=== PATIENT | female | born 1990 | race Caucasian/White ===

== ENCOUNTER → 2016-09-22 | Outpatient (CLI) | payer OTHER ==
[~2016-09-22] MED LIST: PRENTAB26 PO
[2016-09-24 20:52] LABS: QUANTIF TB AG-NIL <0.00 IU/ML; QUANTIFERON NIL 0.06 IU/ML
== END | disposition home or self-care (01) ==
LOC: C.LABSPEC 12:26
PROVIDERS: ATTEND Family Medicine
DX: Z11.3 Encounter for screening for infections with a predominantly sexual mode of transmission (principal); Z11.1 Encounter for screening for respiratory tuberculosis

== ENCOUNTER → 2016-09-29 | Outpatient (CLI) | payer OTHER ==
[2016-10-02 02:41] LABS: CHLAMYDIA TRACH RNA*** NOT DETECTED (NOT DETECTED); GC (NEIS GONORRHOEAE)RNA** NOT DETECTED (NOT DETECTED)
== END | disposition home or self-care (01) ==
LOC: C.LAB 12:22 → MERGE 12:22
PROVIDERS: ATTEND Obstetrics & Gynecology
DX: O20.0 Threatened abortion (principal)

== ENCOUNTER → 2016-10-01 | Outpatient (CLI) | payer OTHER ==
--- NOTE | 2016-10-22 07:46 | CODING QUERY NO DIAGNOSIS ---
TREATMENT RENDERED WITHOUT A DIAGNOSIS To promote full compliance with coding requirements relating to patient care, physician participation is requested in all cases of manager interventional uncertainty. Please assist us with providing a diagnosis/symptom for the test(s) below: A diagnosis/symptom was not documented on your Order. A valid diagnosis/symptom is required to bill all insurances. Please remember that we are unable to code a diagnosis of rule out, probable, possible, questionable, or suspected. Tests that require a diagnosis: DOS: 10/01/16 * BETA-HCG, QUANTITATIVE DIAGNOSIS: Provider Signature: Date: Thank you Opal Castrejon [employer] Once completed, please kindly fax back to [phone] For questions please call [phone]
== END | disposition home or self-care (01) ==
LOC: C.LAB 15:12 → MERGE 15:12
PROVIDERS: ATTEND Obstetrics & Gynecology
DX: O00.90 Unspecified ectopic pregnancy without intrauterine pregnancy (principal)

== ENCOUNTER → 2016-10-03 | Outpatient (CLI) | payer OTHER ==
--- NOTE | 2016-10-03 11:07 | DIAGNOSTIC IMAGING REPORT ---
ULTRASOUND OF THE PELVIS CLINICAL HISTORY: . Left pelvic pain. COMPARISON STUDY: No priors. TECHNIQUE: Real-time, grayscale, and color flow sonography of the pelvis is performed both transabdominally and endovaginally. Images are reviewed in the transverse and longitudinal planes. FINDINGS: Uterus: The uterus is normal in size and echotexture, measuring 9.0 x 3.6 x 5.2 cm. Endometrium: No intrauterine gestation is identified. The endometrium is mildly thickened measuring up to 1.5 cm. Ovaries: The ovaries are normal in size and morphology. The right ovary measures 4.0 x 2.4 x 2.4 cm and the left ovary measures 3.8 x 1.7 x 2.3 cm. Normal Doppler waveforms are shown within both ovaries. Pelvis: There is trace free fluid in the cul-de-sac. There is a right adnexal lesion identified adjacent to the right ovary. The appearance is typical in appearance for a gestational sac and the appearance is consistent with an ectopic . A yolk sac is identified. No pole was seen. IMPRESSION: 1. No intrauterine gestation is identified and there is a right adnexal lesion adjacent to the right ovary consistent with an ectopic . Dr. Guallpa was reportedly present during the examination. 2. There is trace free fluid in the cul-de-sac. Electronically signed by: Clayton Montero M.D. 10/03/2016 11:05 AM Dictated Date/Time: 10/03/2016 11:01 AM
--- NOTE | 2016-10-03 11:22 | HISTORY & PHYSICAL EXAMINATION ---
DATE OF ADMISSION: 10/03/2016 CHIEF COMPLAINT: Right adnexal pain. Positive test. HISTORY OF PRESENT ILLNESS: The patient is a 26-year-old 1, para 0. General health is good. Last menstrual period for this is 08/16/2016. About 3 weeks ago she had some light spotting. She had some serial beta units and a progesterone level. The beta units vimal but not at an appropriate rate. She also began experience right adnexal pain. She was seen in the ultrasound suite on 10/03/2016. Transvaginal ultrasound revealed a right adnexal gestational sac 0.8 cm and it appeared to have a yolk sac in the center of it. Presently being admitted to outpatient treatment unit for methotrexate treatment for ectopic . PAST MEDICAL HISTORY: ALLERGIES: No known drug allergies. PAST SURGICAL HISTORY: No previous surgery. She is in good general health. SOCIAL HISTORY: No smoking, no excessive alcohol intake, is presently unemployed. FAMILY HISTORY: Mom is 53 in good health. Father 54 in good health. Stepbrother in good health. REVIEW OF SYSTEMS: No symptoms of frequent or severe headaches, ear infections, nosebleed, sore throats. PHYSICAL EXAMINATION: GENERAL: Well-developed, well-nourished 26-year-old [place] female, alert, oriented x3 and cooperative, in mild distress. EYES: Conjunctivae are pink, sclerae white, no evidence of jaundice. EARS: Normal light reflex bilaterally. NOSE: Had normal mucosa. Septum is midline. There were no polyps. THROAT: No erythema or evidence of infection. Teeth are in good state of repair. HEAD: Normocephalic, normal distribution of hair. NECK: Supple. Trachea midline. Thyroid is not enlarged. There is no adenopathy appreciated. Both carotids are of good intensity. CHEST: Clear to auscultation and percussion. No wheezes, rales or rhonchi appreciated. HEART: Had regular rhythm. S1, S2 normal. ABDOMEN: Soft and nontender. PELVIC EXAMINATION: Revealed normal-appearing cervix. Small amount of bleeding from the external cervical os. There was some mild right adnexal tenderness. MUSCULOSKELETAL EXAMINATION: Revealed no calf tenderness. IMPRESSIONS OF THIS CASE: Right-sided ectopic .
== END | disposition home or self-care (01) ==
LOC: MERGE 10:02 → C.ULTR 10:02
PROVIDERS: ATTEND Obstetrics & Gynecology
DX: O99.89 Other specified diseases and conditions complicating pregnancy, childbirth and the puerperium (principal); R10.2 Pelvic and perineal pain; Z3A.00 Weeks of gestation of pregnancy not specified

== ENCOUNTER → 2016-10-03 | Day surgery (SDC) | payer OTHER ==
[~2016-10-03] VITALS: Ht 175.3 cm; Wt 59.0 kg
[~2016-10-03] MED LIST changes: +METHOTREXATE SOD IM ONE
[2016-10-03 11:15] VITALS: BP 106/53; PULSE 60; TEMP 36.8; O2SAT 100; Ht 175.3 cm; Wt 59.0 kg
[2016-10-03 11:46] LABS: BASO % 0.7 %; BASO ABS # 0.06 K/uL (0-0.2); EOS % 1.5 %; HEMATOCRIT 37.6 % (37-47); IG% 0.1 %; LYMPH % 23.3 %; LYMPH ABS # 1.98 K/uL (1.2-3.4); MEAN CELL VOLUME 84.3 fL (80-100); MEAN CORPUSCULAR HEMOGLOBIN 28.7 pg (25-34); MEAN PLATELET VOLUME 9.6 fL (7.4-10.4); MONO % 5.9 %; NEUT % 68.5 %; PLATELET COUNT 186 K/uL (130-400); RED BLOOD COUNT 4.46 M/uL (4.2-5.4); WHITE BLOOD COUNT 8.51 K/uL (4.8-10.8)
[2016-10-03 11:47] LABS: COMPLETE YES
[2016-10-03 12:21] LABS: PREG INTERNAL NEGATIVE QC NEG CLEAR BACKGROUND; PREG INTERNAL POSITIVE QC POS CONTROL LINE
== END | disposition home or self-care (01) ==
LOC: MERGE 11:06 → C.MTU 11:06
PROVIDERS: ATTEND Obstetrics & Gynecology
DX: O00.90 Unspecified ectopic pregnancy without intrauterine pregnancy (principal)

== ENCOUNTER → 2016-10-07 | Outpatient (CLI) | payer OTHER ==
[~2016-10-07] MED LIST changes: -METHOTREXATE SOD IM ONE
== END | disposition home or self-care (01) ==
LOC: C.LAB 18:10 → MERGE 18:10
PROVIDERS: ATTEND Obstetrics & Gynecology
DX: O00.90 Unspecified ectopic pregnancy without intrauterine pregnancy (principal)

== ENCOUNTER → 2016-10-09 | Outpatient (CLI) | payer OTHER | END | disposition home or self-care (01) | LOC: C.LAB 07:53 → MERGE 07:53 | PROVIDERS: ATTEND Obstetrics & Gynecology | DX: O00.90 Unspecified ectopic pregnancy without intrauterine pregnancy (principal) ==

== ENCOUNTER → 2016-10-15 | Outpatient (CLI) | payer OTHER | END | disposition home or self-care (01) | LOC: C.LAB 18:06 | PROVIDERS: ATTEND Obstetrics & Gynecology | DX: O00.90 Unspecified ectopic pregnancy without intrauterine pregnancy (principal) ==

== ENCOUNTER → 2016-10-21 | Outpatient (CLI) | payer OTHER | END | disposition home or self-care (01) | LOC: C.LAB 18:04 | PROVIDERS: ATTEND Obstetrics & Gynecology | DX: O00.90 Unspecified ectopic pregnancy without intrauterine pregnancy (principal) ==

== ENCOUNTER → 2016-10-31 | Outpatient (CLI) | payer OTHER | END | disposition home or self-care (01) | LOC: C.LAB 10:58 | PROVIDERS: ATTEND Obstetrics & Gynecology | DX: O00.90 Unspecified ectopic pregnancy without intrauterine pregnancy (principal); Z3A.00 Weeks of gestation of pregnancy not specified ==

== ENCOUNTER → 2016-11-21 | Outpatient (CLI) | payer OTHER | END | disposition home or self-care (01) | LOC: C.LAB 14:33 | PROVIDERS: ATTEND Obstetrics & Gynecology | DX: O00.90 Unspecified ectopic pregnancy without intrauterine pregnancy (principal) ==

== ENCOUNTER → 2017-11-02 | Outpatient (CLI) | payer OTHER | END | disposition home or self-care (01) | LOC: C.PAPS 15:14 | PROVIDERS: ATTEND Obstetrics & Gynecology | DX: Z12.4 Encounter for screening for malignant neoplasm of cervix (principal) ==